=== PATIENT | male | born 1955 | race Caucasian/White ===

== ENCOUNTER 2022-06-21 19:41 | Emergency (ER) | payer MEDICARE ==
[2022-06-21 20:57] LABS: #Eosinphils 0.3 thou/uL (0.0-0.7); #Lymphocytes 2.2 thou/uL (1.20-3.40); #Monocytes 0.8 thou/uL (0.11-0.59); #Neutrophils 6.8 thou/uL (1.40-6.50); %Basophils 0.5 % (0.0-1.0); %Eosinophils 3.2 % (0.0-10.0); %Lymphocytes 21.4 % (21.0-51.0); %Monocytes 7.9 % (0.0-10.0); %Neutrophils 67.1 % (42.0-75.0); Hemoglobin 15.1 g/dL (14.0-18.0); Mean Corpuscular HGB CONC 33.3 g/dL (32.0-36.0); Mean Corpuscular Hemoglobin 28.9 pg (27.0-31.0); Mean Corpuscular Volume 86.7 fl (78.0-98.0); Mean Platelet Volume 8.1 fL (7.4-10.4); Platelet Count 210 10x3/uL (130-400); RBC Distribution Width 12.1 % (11.5-14.5); Red Blood Cell (RBC) Count 5.24 mill/uL (4.70-6.10); White Blood Cell (WBC) Count 10.1 10x3/uL (4.8-10.8)
[2022-06-21 21:08] LABS: ALT (SGPT) 12 U/L (8-55); AST (SGOT) 12 U/L (5-34); Albumin 4.2 g/dL (3.4-4.8); Alkaline Phosphatase 107 U/L (40-110); Anion Gap 12 mmol/L (10-20); BUN (Urea Nitrogen) 10 mg/dL (8.4-25.7); Bilirubin, Total 0.6 mg/dL (0.2-1.2); Calc. Creatinine Clearance 0 mL/min (70-130); Carbon Dioxide 23 mmol/L (23-31); Chloride 105 mmol/L (98-107); Estimated GFR 86; Globulin 2.5 g/dL (2.4-3.5); Glucose 95 mg/dL (80-115); Potassium 4.4 mmol/L (3.5-5.1); Protein, Total 6.7 g/dL (5.8-8.1); Sodium 136 mmol/L (136-145)
== END 2022-06-21 22:07 | disposition home or self-care (01) ==
LOC: ERS 19:41
DX: R00.2 Palpitations (principal); E78.00 Pure hypercholesterolemia, unspecified; Z87.891 Personal history of nicotine dependence
CPT/HCPCS: 36415; 71045; 80053; 84443; 84484; 85025; 85379; 93005

== ENCOUNTER 2022-07-21 21:44 | Inpatient (IN) | payer MEDICARE ==
[2022-07-21 22:19] LABS: #Basophils 0.1 thou/uL (0.0-0.2); #Eosinphils 0.5 thou/uL (0.0-0.7); #Lymphocytes 2.7 thou/uL (1.20-3.40); #Monocytes 0.8 thou/uL (0.11-0.59); %Basophils 0.9 % (0.0-1.0); %Eosinophils 5.7 % (0.0-10.0); %Lymphocytes 29.9 % (21.0-51.0); %Monocytes 8.3 % (0.0-10.0); %Neutrophils 55.2 % (42.0-75.0); Mean Corpuscular HGB CONC 32.7 g/dL (32.0-36.0); Mean Corpuscular Hemoglobin 28.9 pg (27.0-31.0); Mean Corpuscular Volume 88.2 fl (78.0-98.0); Mean Platelet Volume 7.9 fL (7.4-10.4); Platelet Count 246 10x3/uL (130-400); Red Blood Cell (RBC) Count 5.54 mill/uL (4.70-6.10); White Blood Cell (WBC) Count 9.1 10x3/uL (4.8-10.8)
[2022-07-21] MEDS ORDERED: Nitroglycerin 0.4 MG TAB 1 EACH ONE (22:31)
[2022-07-21 22:35] LABS: ALT (SGPT) 17 U/L (8-55); AST (SGOT) 14 U/L (5-34); Albumin 4.7 g/dL (3.4-4.8); Alkaline Phosphatase 104 U/L (40-110); Anion Gap 13 mmol/L (10-20); BUN (Urea Nitrogen) 17 mg/dL (8.4-25.7); Bilirubin, Total 0.3 mg/dL (0.2-1.2); Calc. Creatinine Clearance 0 mL/min (70-130); Calcium 9.4 mg/dL (7.8-10.44); Carbon Dioxide 24 mmol/L (23-31); Chloride 104 mmol/L (98-107); Estimated GFR 83; Globulin 3.1 g/dL (2.4-3.5); Glucose 97 mg/dL (80-115); Lipase 46 U/L (8-78); Potassium 3.6 mmol/L (3.5-5.1); Protein, Total 7.8 g/dL (5.8-8.1); Sodium 137 mmol/L (136-145)
[2022-07-22] MEDS ORDERED: Ondansetron PF 4 MG/2 ML Vial IVP PRN (01:15)
[2022-07-22] MEDS ORDERED: Ondansetron ODT 4 MG TAB SL PRN (01:15)
[2022-07-22 01:23] VITALS: BMI 23.0
[2022-07-22 02:04] LABS: Troponin I Less than 0.010 ng/mL (< 0.028)
[2022-07-22] MEDS ORDERED: Acetaminophen 650 MG Suppository PR PRN (04:21)
[2022-07-22] MEDS ORDERED: Acetaminophen 325 MG TAB PO PRN (04:21)
[2022-07-22] MEDS ORDERED: Nitroglycerin 0.4 MG TAB (25 Tab Bottle) SL PRN ×2 (04:21→09:30)
[2022-07-22] MEDS ORDERED: Nitroglycerin 100MG/250ML BOT 250 ML ONE (06:58)
[2022-07-22] MEDS ORDERED: Heparin 10,000 UNITS/ 10 ML VIAL ONE (06:58)
[2022-07-22] MEDS ORDERED: Adenosine 6 MG/2 ML VIAL ONE (06:58)
[2022-07-22] MEDS ORDERED: Verapamil 5 MG/2 ML VIAL ONE (06:58)
[2022-07-22] MEDS ORDERED: Lidocaine 1% (PF) 30 ML VIAL ONE (06:58)
[2022-07-22 07:06] LABS: Troponin I Less than 0.010 ng/mL (< 0.028)
[2022-07-22] MEDS ORDERED: Communication Order-Pharmacy FS PRN (07:30)
[2022-07-22] MEDS ORDERED: Midazolam HCl 2 mg/2 ml Vial ONE (08:21)
[2022-07-22] MEDS ORDERED: FENTANYL 50 MCG/ML 1 ML VIAL ONE (08:21)
[2022-07-22] MEDS ORDERED: Aspirin Chewable 81 MG TAB PO SCH (09:00)
[2022-07-22] MEDS ORDERED: Iopamidol 370 76% 100 ML VIAL ONE ×2 (09:20→13:06)
[2022-07-22] MEDS ORDERED: Acetaminophen/Codeine 30-300mg Tablet PO PRN ×2 (09:30)
[2022-07-22] MEDS ORDERED: Sodium Chloride 0.9% 200 ML IV PRN (09:30)
[2022-07-22] MEDS ORDERED: Diazepam 5 MG TAB PO PRN (17:08)
[2022-07-22] MEDS ORDERED: Communication Order-Pharmacy FS SCH (17:08)
[2022-07-22] MEDS: Atorvastatin Calcium 40 MG TAB PO SCH (21:09)
[2022-07-23 05:37] LABS: #Basophils 0.1 thou/uL (0.0-0.2); #Eosinphils 0.3 thou/uL (0.0-0.7); #Lymphocytes 2.1 thou/uL (1.20-3.40); #Monocytes 0.6 thou/uL (0.11-0.59); #Neutrophils 4.3 thou/uL (1.40-6.50); %Eosinophils 4.6 % (0.0-10.0); %Lymphocytes 28.5 % (21.0-51.0); %Monocytes 8.4 % (0.0-10.0); %Neutrophils 57.5 % (42.0-75.0); Hemoglobin 13.6 g/dL (14.0-18.0); Mean Corpuscular HGB CONC 33.5 g/dL (32.0-36.0); Mean Corpuscular Hemoglobin 29.7 pg (27.0-31.0); Mean Corpuscular Volume 88.5 fl (78.0-98.0); Mean Platelet Volume 8.3 fL (7.4-10.4); Platelet Count 206 10x3/uL (130-400); RBC Distribution Width 11.9 % (11.5-14.5); Red Blood Cell (RBC) Count 4.57 mill/uL (4.70-6.10); White Blood Cell (WBC) Count 7.4 10x3/uL (4.8-10.8)
[2022-07-23 05:58] LABS: Anion Gap 10 mmol/L (10-20); BUN (Urea Nitrogen) 11 mg/dL (8.4-25.7); Calc. Creatinine Clearance 87 mL/min (70-130); Calcium 8.5 mg/dL (7.8-10.44); Carbon Dioxide 20 mmol/L (23-31); Chloride 110 mmol/L (98-107); Estimated GFR 97; Glucose 90 mg/dL (80-115); Potassium 3.9 mmol/L (3.5-5.1); Sodium 136 mmol/L (136-145)
[2022-07-23] MEDS: Niacin 500 MG TAB PO SCH (09:33)
[2022-07-23] MEDS: Aspirin Chewable 81 MG TAB PO SCH (09:33)
[2022-07-23] MEDS: Atorvastatin Calcium 40 MG TAB PO SCH (20:40)
[2022-07-24] MEDS ORDERED: CEFAZOLIN 2 GM in Sodium Chloride 0.9% 100 ML IVPB SCH (07:30)
[2022-07-24] MEDS: Aspirin Chewable 81 MG TAB PO SCH (07:39)
[2022-07-24] MEDS: Niacin 500 MG TAB PO SCH (07:39)
[2022-07-24] MEDS ORDERED: Bupivacaine HCl 0.5%/Epinephrine 1:200,000/PF 30 ml Vial ONE (08:03)
[2022-07-24] MEDS ORDERED: Albumin 5% 500 ML ONE (08:03)
[2022-07-24] MEDS ORDERED: Dexamethasone 4 mg/ml Vial ONE (08:03)
[2022-07-24] MEDS ORDERED: Heparin 10,000 UNITS/1 ML VIAL 30,000 UNITS in Sodium Chloride 0.9% 1,000 ML FS SCH (08:30)
[2022-07-24] MEDS ORDERED: Lidocaine 1% PF 5 ML VIAL ONE (08:38)
[2022-07-24] MEDS ORDERED: PHENYLEPHRINE-NS 100 MCG/ML 10 ML SYRINGE ONE (09:12)
[2022-07-24] MEDS ORDERED: CEFAZOLIN 2 GM VIAL ONE (09:46)
[2022-07-24] MEDS ORDERED: Sodium Chloride 0.9% 100 ML ONE (09:46)
[2022-07-24] MEDS ORDERED: Midazolam HCl 5 mg/5 ml Vial ONE (09:49)
[2022-07-24] MEDS ORDERED: Fentanyl 250 MCG/5 ML VIAL ONE ×2 (09:49)
[2022-07-24] MEDS ORDERED: Cardioplegic Soln 1,000 ML BAG ONE (09:52)
[2022-07-24] MEDS ORDERED: Ondansetron PF 4 MG/2 ML Vial ONE (09:52)
[2022-07-24] MEDS ORDERED: Lidocaine 2% PF 100 mg/5 ml Syringe ONE (09:52)
[2022-07-24] MEDS ORDERED: Heparin 30,000 units/30 ml VIAL ONE (09:52)
[2022-07-24] MEDS ORDERED: Mannitol 12.5 GM/50 ML ONE (09:52)
[2022-07-24] MEDS ORDERED: PROPOFOL 200 MG/20 ML VIAL ONE (09:52)
[2022-07-24] MEDS ORDERED: Calcium Chloride 1 GM/10 ML Abboject SYRINGE ONE (09:52)
[2022-07-24] MEDS ORDERED: Esmolol 100 MG/10 ML VIAL ONE (09:52)
[2022-07-24] MEDS ORDERED: Phenylephrine 10 MG/ML VIAL ONE (09:52)
[2022-07-24] MEDS ORDERED: Protamine Sulfate 250 MG/25 ML VIAL ONE (09:52)
[2022-07-24] MEDS ORDERED: Sodium Bicarb 50 MEQ/50 ML VIAL ONE (09:52)
[2022-07-24] MEDS ORDERED: Potassium Chloride 60 MEQ/30 ML VIAL ONE (09:52)
[2022-07-24] MEDS ORDERED: Papaverine 60 MG/2 ML VIAL ONE (09:52)
[2022-07-24] MEDS ORDERED: Rocuronium Bromide 10 MG/ML (10ML VIAL) ONE (09:52)
[2022-07-24] MEDS ORDERED: Vancomycin 1 GM VIAL ONE (09:52)
[2022-07-24] MEDS ORDERED: Magnesium 5 GM/10 ML VIAL ONE (09:52)
[2022-07-24] MEDS ORDERED: Aminocaproic Acid 5 GM/20 ML VIAL ONE (09:52)
[2022-07-24] MEDS ORDERED: Thrombin 5000 UNITS/5 ML VIAL ONE (09:52)
[2022-07-24] MEDS ORDERED: Heparin 5,000 UNITS/ML VIAL ONE (09:52)
[2022-07-24] MEDS ORDERED: Rocuronium Bromide 50 MG/5 ML VIAL ONE (11:26)
[2022-07-24] MEDS ORDERED: NOREPINEPHRINE 8 MG/250 ML-D5W 250 ML IVPB PRN (11:44)
[2022-07-24] MEDS ORDERED: niCARdipine 25 MG in Sodium Chloride 0.9% 250 ML 250 ML IVPB PRN (11:44)
[2022-07-24] MEDS ORDERED: Acetaminophen 325 MG TAB PO PRN (11:44)
[2022-07-24] MEDS ORDERED: Bisacodyl 5 MG TAB PO PRN (11:44)
[2022-07-24] MEDS ORDERED: traMADol HCl 50 MG TAB PO PRN (11:44)
[2022-07-24] MEDS ORDERED: hydrALAZINE 20 MG/ML VIAL SLOW IVP PRN (11:44)
[2022-07-24] MEDS ORDERED: FENTANYL 50 MCG/ML 1 ML VIAL SLOW IVP PRN (11:44)
[2022-07-24] MEDS ORDERED: Morphine 2 MG/ML VIAL SLOW IVP PRN (11:44)
[2022-07-24] MEDS ORDERED: Ipratropium/Albuterol 3 ML NEB NEB PRN (11:44)
[2022-07-24] MEDS ORDERED: Mag-Al 1200 mg/1200 mg/30 ML UDCUP PO PRN (11:44)
[2022-07-24] MEDS ORDERED: Guaifenesin DM 100-10/5 ML UDCUP PO PRN (11:44)
[2022-07-24] MEDS ORDERED: Hetastarch 6% 500 ML 500 ML IVPB PRN (11:44)
[2022-07-24] MEDS ORDERED: Bisacodyl 10 MG SUPP PR PRN (11:44)
[2022-07-24] MEDS ORDERED: Dextrose 5% in Water 1,000 ML IV PRN (12:30)
[2022-07-24] MEDS ORDERED: Dextrose 50% Abboject 50 ML SYRINGE SLOW IVP PRN (12:30)
[2022-07-24] MEDS ORDERED: HUMULIN R 100 UNITS in Sodium Chloride 0.9% 100 ML IVPB SCH (12:30)
[2022-07-24 13:14] LABS: Actual Bicarbonate (HCO3a) 22.9 mEq/L (22-28); Base Excess (BEa) -4.1 mEq/L (-2.0 to +3.0); CO2 Tension 49.9 mmHg (35.0-45.0); Calcium, Ionized (arterial) 1.11 mmol/L (1.12-1.30); Carboxyhemoglobin (COHb) 0.3 gm% (0.0-3.0); Hemoglobin (Hb) 12.5 g/dL (14.0-18.0); Potassium - ABG Lab 3.69 mmol/L (3.70-5.30); pH, Arterial 7.28 (7.35-7.45)
[2022-07-24 13:15] LABS: ALV-art Gradient 210.425 mmHg (0-20); Puncture Site Arterial Line
[2022-07-24] MEDS: Potassium Chloride 20 MEQ in Lactated Ringer's 1,000 ML IV SCH (13:15)
[2022-07-24] MEDS: Insulin Regular 300 UNITS/3 ML VIAL SC PRN ×2 (13:17→15:06)
[2022-07-24 13:23] LABS: Potassium 1.7 mmol/L (3.5-5.1)
[2022-07-24] MEDS: Potassium Chloride 20 MEQ/100 ML PREMIX BAG IVPB PRN ×2 (13:24→17:06)
[2022-07-24] MEDS: Ketorolac Tromethamine 30 MG/ML VIAL IVP SCH ×3 (13:36→23:45)
[2022-07-24 13:49] LABS: INR-International Normal Ratio 1.2; PTT 31.4 sec (22.9-36.1); Prothrombin Time 15.4 sec (12.0-14.7)
[2022-07-24 13:56] LABS: Anion Gap 11 mmol/L (10-20); BUN (Urea Nitrogen) 9 mg/dL (8.4-25.7); Calc. Creatinine Clearance 91 mL/min (70-130); Carbon Dioxide 22 mmol/L (23-31); Chloride 112 mmol/L (98-107); Estimated GFR 98; Glucose 165 mg/dL (80-115); Hemoglobin 11.9 g/dL (14.0-18.0); Mean Corpuscular HGB CONC 32.5 g/dL (32.0-36.0); Mean Corpuscular Hemoglobin 29.3 pg (27.0-31.0); Mean Platelet Volume 7.7 fL (7.4-10.4); Platelet Count 193 10x3/uL (130-400); Potassium 3.8 mmol/L (3.5-5.1); Red Blood Cell (RBC) Count 4.05 mill/uL (4.70-6.10); Sodium 141 mmol/L (136-145); White Blood Cell (WBC) Count 21.7 10x3/uL (4.8-10.8)
[2022-07-24 14:25] LABS: Band 22 % (5-11); Lymphocytes 7 % (21-51); MDiff Complete? YES; Monocytes 1 % (0-10); Neutrophil 69 % (42-75); Platelet Morphology Comment Appears Adequate; RBC Morphology Normal
[2022-07-24] MEDS: Ondansetron PF 4 MG/2 ML Vial IVP PRN ×2 (14:26→20:53)
[2022-07-24 16:16] LABS: Potassium 3.5 mmol/L (3.5-5.1)
[2022-07-24 16:25] LABS: Actual Bicarbonate (HCO3a) 18.7 mEq/L (22-28); Base Excess (BEa) -6.5 mEq/L (-2.0 to +3.0); CO2 Tension 36.3 mmHg (35.0-45.0); Calcium, Ionized (arterial) 1.09 mmol/L (1.12-1.30); Carboxyhemoglobin (COHb) 0.2 gm% (0.0-3.0); Hemoglobin (Hb) 11.7 g/dL (14.0-18.0); O2 Tension (PaO2), arterial 127.8 mmHg (> 80.0); Potassium - ABG Lab 3.69 mmol/L (3.70-5.30); pH, Arterial 7.33 (7.35-7.45)
[2022-07-24 16:32] LABS: ALV-art Gradient 112.025 mmHg (0-20); Puncture Site Arterial Line
[2022-07-24] MEDS: FENTANYL 50 MCG/ML 1 ML VIAL SLOW IVP PRN ×3 (16:34→23:55)
[2022-07-24] MEDS: CEFAZOLIN 2 GM in Sodium Chloride 0.9% 100 ML IVPB SCH (17:51)
[2022-07-24 18:03] LABS: Hemoglobin 11.7 g/dL (14.0-18.0)
[2022-07-24] MEDS: Famotidine/PF 20 mg/2ml Vial SLOW IVP SCH ×2 (20:53→20:56)
[2022-07-24] MEDS: traMADol HCl 50 MG TAB PO PRN (20:54)
[2022-07-24] MEDS ORDERED: Atorvastatin Calcium 20 MG TAB PO SCH (21:00)
[2022-07-25] MEDS ORDERED: Amiodarone 150 MG, Admixture Fee 1 EACH in Dextrose 5% in Water 100 ML IVPB SCH (00:30)
[2022-07-25] MEDS: Amiodarone 450 MG, Admixture Fee 1 EACH in Dextrose 5% in Water 250 ML IVPB SCH ×2 (00:41→09:04)
[2022-07-25] MEDS: CEFAZOLIN 2 GM in Sodium Chloride 0.9% 100 ML IVPB SCH ×2 (02:42→08:40)
[2022-07-25] MEDS: Ondansetron PF 4 MG/2 ML Vial IVP PRN ×3 (03:17→16:32)
[2022-07-25 04:59] LABS: #Lymphocytes 0.8 thou/uL (1.20-3.40); #Monocytes 1.6 thou/uL (0.11-0.59); #Neutrophils 19.1 thou/uL (1.40-6.50); %Lymphocytes 3.6 % (21.0-51.0); %Monocytes 7.5 % (0.0-10.0); %Neutrophils 88.8 % (42.0-75.0); Mean Corpuscular HGB CONC 32.6 g/dL (32.0-36.0); Mean Platelet Volume 7.9 fL (7.4-10.4); Platelet Count 178 10x3/uL (130-400); RBC Distribution Width 11.9 % (11.5-14.5); Red Blood Cell (RBC) Count 3.81 mill/uL (4.70-6.10); White Blood Cell (WBC) Count 21.5 10x3/uL (4.8-10.8)
[2022-07-25 05:18] LABS: Anion Gap 12 mmol/L (10-20); BUN (Urea Nitrogen) 12 mg/dL (8.4-25.7); Calc. Creatinine Clearance 86 mL/min (70-130); Calcium 8.5 mg/dL (7.8-10.44); Carbon Dioxide 21 mmol/L (23-31); Chloride 110 mmol/L (98-107); Estimated GFR 96; Glucose 124 mg/dL (80-115); Potassium 3.9 mmol/L (3.5-5.1); Sodium 139 mmol/L (136-145)
[2022-07-25] MEDS: Ketorolac Tromethamine 30 MG/ML VIAL IVP SCH ×4 (05:46→23:44)
[2022-07-25] MEDS: Potassium Chloride 20 MEQ/100 ML PREMIX BAG IVPB PRN (05:48)
[2022-07-25] MEDS ORDERED: Atorvastatin Calcium 20 MG TAB PO SCH (07:20)
[2022-07-25 07:37] LABS: Hemoglobin A1c 5.4 % (4.0-6.0)
[2022-07-25] MEDS: Magnesium 2 GM/50 ML(in water) 2 GM in Premix Bag 1 BAG IVPB SCH (08:39)
[2022-07-25] MEDS: Metoclopramide HCl 10 MG/2 ML VIAL IVP SCH ×3 (08:39→19:48)
[2022-07-25] MEDS: Aspirin 325 MG TAB PO SCH (08:40)
[2022-07-25] MEDS ORDERED: FLU VACC QS2022-23(65YR UP)/PF 240 MCG/0.7 ML SYRINGE IM ONE (09:00)
[2022-07-25] MEDS: FENTANYL 50 MCG/ML 1 ML VIAL SLOW IVP PRN (09:03)
[2022-07-25] MEDS: Potassium Chloride 20 MEQ in Lactated Ringer's 1,000 ML IV SCH (09:44)
[2022-07-25] MEDS ORDERED: Insulin Glargine 30 UNITS/0.3 ML VIAL SC PRN (12:17)
[2022-07-25] MEDS: traMADol HCl 50 MG TAB PO PRN ×2 (13:33→19:46)
[2022-07-25] MEDS: Atorvastatin Calcium 40 MG TAB PO SCH (19:48)
[2022-07-25] MEDS: Insulin Regular 300 UNITS/3 ML VIAL SC PRN (21:42)
[2022-07-26] MEDS: Amiodarone 450 MG, Admixture Fee 1 EACH in Dextrose 5% in Water 250 ML IVPB SCH (01:27)
[2022-07-26] MEDS: Metoclopramide HCl 10 MG/2 ML VIAL IVP SCH ×4 (02:00→21:18)
[2022-07-26] MEDS: Ondansetron PF 4 MG/2 ML Vial IVP PRN ×3 (04:03→17:12)
[2022-07-26] MEDS: traMADol HCl 50 MG TAB PO PRN ×2 (04:03→13:24)
[2022-07-26] MEDS: Potassium Chloride 20 MEQ in Lactated Ringer's 1,000 ML IV SCH (04:04)
[2022-07-26 05:18] LABS: #Lymphocytes 2.2 thou/uL (1.20-3.40); #Neutrophils 19.2 thou/uL (1.40-6.50); %Basophils 0.1 % (0.0-1.0); %Eosinophils 0.1 % (0.0-10.0); %Lymphocytes 9.5 % (21.0-51.0); %Monocytes 8.7 % (0.0-10.0); %Neutrophils 81.7 % (42.0-75.0); Hemoglobin 11.6 g/dL (14.0-18.0); Mean Corpuscular HGB CONC 33.1 g/dL (32.0-36.0); Mean Corpuscular Hemoglobin 29.8 pg (27.0-31.0); Mean Corpuscular Volume 90.1 fl (78.0-98.0); Mean Platelet Volume 8.8 fL (7.4-10.4); Platelet Count 186 10x3/uL (130-400); RBC Distribution Width 12.3 % (11.5-14.5); White Blood Cell (WBC) Count 23.5 10x3/uL (4.8-10.8)
[2022-07-26 05:34] LABS: Anion Gap 11 mmol/L (10-20); BUN (Urea Nitrogen) 18 mg/dL (8.4-25.7); Calc. Creatinine Clearance 97 mL/min (70-130); Calcium 7.8 mg/dL (7.8-10.44); Carbon Dioxide 21 mmol/L (23-31); Chloride 105 mmol/L (98-107); Estimated GFR 97; Glucose 123 mg/dL (80-115); Potassium 4.6 mmol/L (3.5-5.1); Sodium 132 mmol/L (136-145)
[2022-07-26] MEDS: Ketorolac Tromethamine 30 MG/ML VIAL IVP SCH ×3 (06:32→21:17)
[2022-07-26] MEDS: Insulin Regular 300 UNITS/3 ML VIAL SC PRN (06:37)
[2022-07-26] MEDS: Aspirin 325 MG TAB PO SCH (07:52)
[2022-07-26] MEDS: Magnesium 2 GM/50 ML(in water) 2 GM in Premix Bag 1 BAG IVPB SCH (07:52)
[2022-07-26] MEDS ORDERED: Potassium Chloride 20 MEQ TAB PO SCH ×2 (08:00→17:00)
[2022-07-26] MEDS: Metoprolol Tartrate 25 MG TAB PO SCH ×3 (08:05→21:18)
[2022-07-26] MEDS ORDERED: Furosemide 40 MG TAB PO SCH ×2 (09:00→12:15)
[2022-07-26] MEDS: Amiodarone 200 MG TAB PO SCH ×3 (10:20→21:18)
[2022-07-26] MEDS ORDERED: Nitroglycerin 0.4 MG TAB (25 Tab Bottle) SL PRN (19:27)
[2022-07-26] MEDS ORDERED: Zolpidem Tartrate 5 MG TAB PO PRN (19:27)
[2022-07-26] MEDS ORDERED: Mineral Oil ENEMA PR PRN (19:27)
[2022-07-26] MEDS ORDERED: diphenhydrAMINE 25 MG CAP PO PRN (19:27)
[2022-07-26] MEDS ORDERED: Guaifenesin DM 100-10/5 ML UDCUP PO PRN (19:27)
[2022-07-26] MEDS ORDERED: Milk Of Magnesia 30 ML UDCUP PO PRN (19:27)
[2022-07-26] MEDS: Atorvastatin Calcium 40 MG TAB PO SCH (21:19)
[2022-07-27] MEDS: Ketorolac Tromethamine 30 MG/ML VIAL IVP SCH ×2 (00:21→06:20)
[2022-07-27] MEDS: Metoclopramide HCl 10 MG/2 ML VIAL IVP SCH ×2 (02:31→09:14)
[2022-07-27] MEDS ORDERED: Furosemide 40 MG TAB PO SCH (07:30)
[2022-07-27] MEDS: Aspirin 325 MG TAB PO SCH (09:11)
[2022-07-27] MEDS: Metoprolol Tartrate 25 MG TAB PO SCH ×2 (09:11→20:39)
[2022-07-27] MEDS: Amiodarone 200 MG TAB PO SCH ×3 (09:12→20:39)
[2022-07-27] MEDS: Potassium Chloride 20 MEQ TAB PO SCH (09:13)
[2022-07-27] MEDS: Furosemide 40 MG TAB PO SCH (09:13)
[2022-07-27] MEDS ORDERED: HYDROcodone/Acetaminophen 5/325 mg Tablet PO PRN ×2 (10:13)
[2022-07-27 11:06] LABS: Anion Gap 13 mmol/L (10-20); BUN (Urea Nitrogen) 16 mg/dL (8.4-25.7); Calc. Creatinine Clearance 100 mL/min (70-130); Calcium 8.4 mg/dL (7.8-10.44); Carbon Dioxide 23 mmol/L (23-31); Chloride 94 mmol/L (98-107); Estimated GFR 97; Glucose 116 mg/dL (80-115); Potassium 4.3 mmol/L (3.5-5.1); Sodium 126 mmol/L (136-145)
[2022-07-27] MEDS ORDERED: Furosemide 40 MG/4 ML VIAL SLOW IVP SCH (13:00)
[2022-07-27 14:14] LABS: Anion Gap 11 mmol/L (10-20); BUN (Urea Nitrogen) 16 mg/dL (8.4-25.7); Calc. Creatinine Clearance 107 mL/min (70-130); Calcium 7.9 mg/dL (7.8-10.44); Carbon Dioxide 24 mmol/L (23-31); Chloride 94 mmol/L (98-107); Estimated GFR 99; Glucose 119 mg/dL (80-115); Sodium 125 mmol/L (136-145)
[2022-07-27] MEDS: Atorvastatin Calcium 40 MG TAB PO SCH (20:39)
[2022-07-28 05:29] LABS: Anion Gap 11 mmol/L (10-20); BUN (Urea Nitrogen) 14 mg/dL (8.4-25.7); Calc. Creatinine Clearance 101 mL/min (70-130); Calcium 8.1 mg/dL (7.8-10.44); Carbon Dioxide 26 mmol/L (23-31); Chloride 95 mmol/L (98-107); Estimated GFR 97; Glucose 108 mg/dL (80-115); Potassium 3.5 mmol/L (3.5-5.1); Sodium 128 mmol/L (136-145)
[2022-07-28] MEDS: Metoprolol Tartrate 25 MG TAB PO SCH (09:12)
[2022-07-28] MEDS: Amiodarone 200 MG TAB PO SCH (09:12)
[2022-07-28] MEDS: Aspirin 325 MG TAB PO SCH (09:14)
[2022-07-28] MEDS: Furosemide 40 MG TAB PO SCH (09:14)
[2022-07-28] MEDS: Potassium Chloride 20 MEQ TAB PO SCH (09:14)
[2022-07-28 12:17] VITALS: TEMP 97.7
[2022-07-28 12:34] VITALS: BP 122/59
[2022-07-29 13:35] LABS: Actual Bicarbonate (HCO3a) 19.1 mEq/L (22-28); Analyzer IN Cardio OR; Base Excess (BEa) -4.5 mEq/L (-2.0 to +3.0); Calcium, Ionized (arterial) 1.11 mmol/L (1.12-1.30); Carboxyhemoglobin (COHb) 0.6 gm% (0.0-3.0); O2 Tension (PaO2), arterial 377.1 mmHg (> 80.0); Potassium - ABG Lab 3.57 mmol/L (3.70-5.30); pH, Arterial 7.41 (7.35-7.45)
[2022-07-29 13:44] LABS: Actual Bicarbonate (HCO3a) 24.1 mEq/L (22-28); Analyzer IN Cardio OR; Base Excess (BEa) -0.6 mEq/L (-2.0 to +3.0); CO2 Tension 39.6 mmHg (35.0-45.0); Calcium, Ionized (arterial) 0.97 mmol/L (1.12-1.30); Carboxyhemoglobin (COHb) 0.3 gm% (0.0-3.0); Hemoglobin (Hb) 9.8 g/dL (14.0-18.0); O2 Tension (PaO2), arterial 294.8 mmHg (> 80.0); Potassium - ABG Lab 4.82 mmol/L (3.70-5.30)
[2022-07-29 13:46] LABS: Actual Bicarbonate (HCO3a) 20.4 mEq/L (22-28); Analyzer IN Cardio OR; Base Excess (BEa) -4.7 mEq/L (-2.0 to +3.0); CO2 Tension 37.3 mmHg (35.0-45.0); Calcium, Ionized (arterial) 1.01 mmol/L (1.12-1.30); Carboxyhemoglobin (COHb) 0.3 gm% (0.0-3.0); Hemoglobin (Hb) 9.9 g/dL (14.0-18.0); O2 Tension (PaO2), arterial 231.4 mmHg (> 80.0); pH, Arterial 7.36 (7.35-7.45)
[2022-07-29 13:49] LABS: Actual Bicarbonate (HCO3a) 24.8 mEq/L (22-28); Analyzer IN Cardio OR; Base Excess (BEa) -0.6 mEq/L (-2.0 to +3.0); Calcium, Ionized (arterial) 1.13 mmol/L (1.12-1.30); Carboxyhemoglobin (COHb) 0.3 gm% (0.0-3.0); Hemoglobin (Hb) 9.9 g/dL (14.0-18.0); O2 Tension (PaO2), arterial 381.4 mmHg (> 80.0); Potassium - ABG Lab 4.14 mmol/L (3.70-5.30); pH, Arterial 7.37 (7.35-7.45)
[2022-07-29 13:53] LABS: Puncture Site Arterial Line
[2022-07-29 13:54] LABS: Puncture Site Arterial Line
[2022-07-29 13:55] LABS: Puncture Site Arterial Line
[2022-07-29 13:55] LABS: Puncture Site Arterial Line
== END 2022-07-28 12:40 | disposition home or self-care (01) | DRG 234 ==
LOC: ERS 21:44 → 2NO 23:39 → OBSVTOIN 07-22 10:52 → CCU 07-24 08:43 → 2NO 07-26 19:48
PROVIDERS: ADMIT Internal Medicine; ATTEND Internal Medicine
PROC: 4A023N7 Measurement of Cardiac Sampling and Pressure, Left Heart, Percutaneous Approach (ICD-10-PCS; 2022-07-21)
PROC: B2111ZZ Fluoroscopy of Multiple Coronary Arteries using Low Osmolar Contrast (ICD-10-PCS; 2022-07-21)
PROC: B2151ZZ Fluoroscopy of Left Heart using Low Osmolar Contrast (ICD-10-PCS; 2022-07-21)
PROC: 02100Z9 Bypass Coronary Artery, One Artery from Left Internal Mammary, Open Approach (ICD-10-PCS; principal; 2022-07-24)
PROC: 021109W Bypass Coronary Artery, Two Arteries from Aorta with Autologous Venous Tissue, Open Approach (ICD-10-PCS; 2022-07-24)
PROC: 06BQ4ZZ Excision of Left Saphenous Vein, Percutaneous Endoscopic Approach (ICD-10-PCS; 2022-07-24)
PROC: 5A1221Z Performance of Cardiac Output, Continuous (ICD-10-PCS; 2022-07-24)
PROC: 02L73CK Occlusion of Left Atrial Appendage with Extraluminal Device, Percutaneous Approach (ICD-10-PCS; 2022-07-24)
DX: I25.110 Atherosclerotic heart disease of native coronary artery with unstable angina pectoris (principal); E22.2 Syndrome of inappropriate secretion of antidiuretic hormone; I47.20 Ventricular tachycardia, unspecified; I10 Essential (primary) hypertension; R09.89 Other specified symptoms and signs involving the circulatory and respiratory systems; E78.2 Mixed hyperlipidemia; I95.1 Orthostatic hypotension; I48.91 Unspecified atrial fibrillation; R11.0 Nausea; Z79.82 Long term (current) use of aspirin; Z79.899 Other long term (current) drug therapy; Z90.49 Acquired absence of other specified parts of digestive tract; Z87.891 Personal history of nicotine dependence; Z78.1 Physical restraint status; Z82.49 Family history of ischemic heart disease and other diseases of the circulatory system; Z80.9 Family history of malignant neoplasm, unspecified; Z82.3 Family history of stroke
CPT/HCPCS: 36415; 36416; 36430; 70498; 71045; 80048; 80053; 82805; 83036; 83690; 83930; 83935; 84484; 85025; 85610; 85730; 86850; 86900; 86901; 93005; 93010; 93458; 93798; 94002; 94760; 96372; 99152; 99153; C1751; C1769; C1776; C1894; G0378; J0153; J0282; J1100; J1642; J1644; J1650; J1815; J1885; J1940; J2001; J2150; J2250; J2272; J2370; J2405; J2440; J2704; J2720; J2765; J3010; J3370; J3475; J3480; J3490; J7070; J7120; P9045; Q9967; S0017; S0028

== ENCOUNTER 2022-08-01 01:55 | Inpatient (IN) | payer MEDICARE ==
[2022-08-01 02:25] LABS: Hemoglobin 6.1 g/dL (14.0-18.0); Mean Corpuscular HGB CONC 33.9 g/dL (32.0-36.0); Mean Corpuscular Hemoglobin 30.2 pg (27.0-31.0); Mean Corpuscular Volume 89.2 fl (78.0-98.0); Mean Platelet Volume 6.6 fL (7.4-10.4); Platelet Count 368 10x3/uL (130-400); RBC Distribution Width 11.9 % (11.5-14.5); Red Blood Cell (RBC) Count 2.02 mill/uL (4.70-6.10); White Blood Cell (WBC) Count 25.1 10x3/uL (4.8-10.8)
[2022-08-01 02:33] LABS: INR-International Normal Ratio 1.3; PTT 27.6 sec (22.9-36.1); Prothrombin Time 16.5 sec (12.0-14.7)
[2022-08-01 02:39] LABS: Band 6 % (5-11); Eosinophils 1 % (0-10); Lymphocytes 3 % (21-51); MDiff Complete? YES; Metamyelocyte 1 % (0-0); Monocytes 7 % (0-10); Myelocyte 1 % (0-0); Neutrophil 81 % (42-75); Toxic Granulation SLIGHT
[2022-08-01 02:45] LABS: ALT (SGPT) 28 U/L (8-55); AST (SGOT) 18 U/L (5-34); Albumin 2.3 g/dL (3.4-4.8); Alkaline Phosphatase 82 U/L (40-110); Anion Gap 11 mmol/L (10-20); BUN (Urea Nitrogen) 23 mg/dL (8.4-25.7); Bilirubin, Total 0.3 mg/dL (0.2-1.2); Calc. Creatinine Clearance 0 mL/min (70-130); Carbon Dioxide 21 mmol/L (23-31); Chloride 105 mmol/L (98-107); Estimated GFR 97; Globulin 1.7 g/dL (2.4-3.5); Glucose 149 mg/dL (80-115); Magnesium 1.6 mg/dL (1.6-2.6); Potassium 4.3 mmol/L (3.5-5.1); Sodium 133 mmol/L (136-145)
[2022-08-01 02:55] LABS: Calcium 6.8 mg/dL (7.8-10.44)
[2022-08-01] MEDS ORDERED: Acetaminophen 325 MG TAB PO PRN (03:19)
[2022-08-01] MEDS ORDERED: Ondansetron PF 4 MG/2 ML Vial IVP PRN (03:19)
[2022-08-01] MEDS ORDERED: Senokot S 8.6-50 MG TAB PO PRN (03:19)
[2022-08-01] MEDS ORDERED: Calcium Carbonate 500 MG ChewTAB PO PRN (03:19)
[2022-08-01] MEDS ORDERED: Ondansetron ODT 4 MG TAB PO PRN (03:19)
[2022-08-01] MEDS ORDERED: Pantoprazole 40 MG VIAL ONE (03:23)
[2022-08-01] MEDS ORDERED: Calcium Chloride 1 GM/10 ML Abboject SYRINGE ONE (03:23)
[2022-08-01 03:24] LABS: CKMB 0.5 ng/mL (0-6.6)
[2022-08-01] MEDS ORDERED: Calcium Gluc 4.6 MEQ/10 ML (100 MG/ML) ONE (03:25)
[2022-08-01] MEDS ORDERED: CALCIUM GLUC 1 GM/NS 50 ML BAG ONE ×2 (03:25→03:27)
[2022-08-01] MEDS ORDERED: Pantoprazole 40 MG VIAL IVP SCH ×2 (03:30→09:00)
[2022-08-01 04:41] LABS: Troponin I 0.525 ng/mL (< 0.028)
[2022-08-01] MEDS ORDERED: Cefepime 1 GM in Sodium Chloride 0.9% 100 ML IVPB SCH (05:00)
[2022-08-01] MEDS ORDERED: Magnesium 2 GM/50 ML(in water) 2 GM in Premix Bag 1 BAG IVPB SCH (05:15)
[2022-08-01] MEDS ORDERED: Electrolyte Replacement Protocol 1 EACH FS PRN (06:06)
[2022-08-01 06:22] VITALS: BMI 25.1
[2022-08-01 08:46] LABS: Critical Call Chem Troponin I RESULT DECREASING; Troponin I 0.435 ng/mL (< 0.028)
[2022-08-01] MEDS ORDERED: Metoprolol Tartrate 25 MG TAB PO SCH ×2 (09:00)
[2022-08-01] MEDS: Amiodarone 200 MG TAB PO SCH ×3 (09:58→20:25)
[2022-08-01] MEDS: Potassium Chloride 20 MEQ TAB PO SCH (09:58)
[2022-08-01] MEDS: Dextrose 5 % And 0.9 % NaCl 1,000 ML IV SCH ×3 (12:30→22:30)
[2022-08-01 13:06] LABS: Hemoglobin 8.4 g/dL (14.0-18.0)
[2022-08-01] MEDS ORDERED: Iopamidol-370 76% 500 ML MDV (1 ML CHARGE) ONE (13:28)
[2022-08-01] MEDS: Cefepime 2 GM in Sodium Chloride 0.9% 100 ML IVPB SCH (17:40)
[2022-08-01 20:01] LABS: Hemoglobin 8.7 g/dL (14.0-18.0)
[2022-08-01] MEDS: Atorvastatin Calcium 40 MG TAB PO SCH (20:25)
[2022-08-01] MEDS: Pantoprazole 40 MG VIAL IVP SCH (20:26)
[2022-08-02 04:08] LABS: #Eosinphils 0.6 thou/uL (0.0-0.7); #Lymphocytes 2.4 thou/uL (1.20-3.40); #Monocytes 1.7 thou/uL (0.11-0.59); #Neutrophils 13.7 thou/uL (1.40-6.50); %Basophils 0.2 % (0.0-1.0); %Eosinophils 3.4 % (0.0-10.0); %Lymphocytes 12.9 % (21.0-51.0); %Monocytes 9.1 % (0.0-10.0); %Neutrophils 74.3 % (42.0-75.0); Mean Corpuscular Hemoglobin 31.1 pg (27.0-31.0); Mean Corpuscular Volume 88.7 fl (78.0-98.0); Mean Platelet Volume 6.2 fL (7.4-10.4); Platelet Count 339 10x3/uL (130-400); RBC Distribution Width 12.4 % (11.5-14.5); Red Blood Cell (RBC) Count 2.56 mill/uL (4.70-6.10); White Blood Cell (WBC) Count 18.4 10x3/uL (4.8-10.8)
[2022-08-02 04:28] LABS: ALT (SGPT) 22 U/L (8-55); AST (SGOT) 15 U/L (5-34); Albumin 2.5 g/dL (3.4-4.8); Alkaline Phosphatase 91 U/L (40-110); Anion Gap 9 mmol/L (10-20); BUN (Urea Nitrogen) 11 mg/dL (8.4-25.7); Bilirubin, Total 0.6 mg/dL (0.2-1.2); Calc. Creatinine Clearance 108 mL/min (70-130); Calcium 7.4 mg/dL (7.8-10.44); Carbon Dioxide 22 mmol/L (23-31); Chloride 106 mmol/L (98-107); Estimated GFR 99; Globulin 1.8 g/dL (2.4-3.5); Glucose 116 mg/dL (80-115); Magnesium 1.9 mg/dL (1.6-2.6); Potassium 3.9 mmol/L (3.5-5.1); Protein, Total 4.3 g/dL (5.8-8.1); Sodium 133 mmol/L (136-145)
[2022-08-02] MEDS: Cefepime 2 GM in Sodium Chloride 0.9% 100 ML IVPB SCH ×2 (05:13→15:34)
[2022-08-02] MEDS ORDERED: Magnesium 2 GM/50 ML(in water) 2 GM in Premix Bag 1 BAG IVPB SCH (08:00)
[2022-08-02] MEDS ORDERED: Ketamine 50 MG/ML (10ML VIAL) ONE (10:29)
[2022-08-02] MEDS ORDERED: Midazolam HCl 2 mg/2 ml Vial ONE (10:29)
[2022-08-02] MEDS ORDERED: ePHEDrine Sulfate 50 MG/10 ML VIAL ONE (10:37)
[2022-08-02] MEDS ORDERED: PROPOFOL 200 MG/20 ML VIAL ONE (10:37)
[2022-08-02] MEDS ORDERED: EPINEPHrine 1 MG/10 ML Abboject SYRINGE ONE (10:37)
[2022-08-02] MEDS: Amiodarone 200 MG TAB PO SCH ×3 (12:19→20:32)
[2022-08-02] MEDS: Potassium Chloride 20 MEQ TAB PO SCH (12:33)
[2022-08-02] MEDS: Pantoprazole 40 MG VIAL IVP SCH ×2 (12:35→20:32)
[2022-08-02] MEDS: Dextrose 5 % And 0.9 % NaCl 1,000 ML IV SCH ×2 (13:08→20:33)
[2022-08-02] MEDS: Atorvastatin Calcium 40 MG TAB PO SCH (20:32)
[2022-08-03 04:37] LABS: Magnesium 1.9 mg/dL (1.6-2.6)
[2022-08-03] MEDS: Dextrose 5 % And 0.9 % NaCl 1,000 ML IV SCH ×2 (05:11→15:46)
[2022-08-03] MEDS: Cefepime 2 GM in Sodium Chloride 0.9% 100 ML IVPB SCH ×2 (05:11→17:55)
[2022-08-03] MEDS ORDERED: Magnesium 2 GM/50 ML(in water) 2 GM in Premix Bag 1 BAG IVPB SCH (08:00)
[2022-08-03] MEDS: Pantoprazole 40 MG VIAL IVP SCH ×2 (09:29→20:27)
[2022-08-03] MEDS: Amiodarone 200 MG TAB PO SCH ×3 (09:29→20:26)
[2022-08-03] MEDS: Potassium Chloride 20 MEQ TAB PO SCH (09:29)
[2022-08-03 09:48] LABS: Hemoglobin 8.1 g/dL (14.0-18.0); Mean Corpuscular HGB CONC 34.1 g/dL (32.0-36.0); Mean Corpuscular Hemoglobin 30.8 pg (27.0-31.0); Mean Corpuscular Volume 90.2 fl (78.0-98.0); Mean Platelet Volume 6.2 fL (7.4-10.4); Platelet Count 462 10x3/uL (130-400); RBC Distribution Width 13.1 % (11.5-14.5); Red Blood Cell (RBC) Count 2.64 mill/uL (4.70-6.10); White Blood Cell (WBC) Count 20.8 10x3/uL (4.8-10.8)
[2022-08-03 10:01] LABS: Anion Gap 11 mmol/L (10-20); BUN (Urea Nitrogen) 8 mg/dL (8.4-25.7); Calc. Creatinine Clearance 93 mL/min (70-130); Calcium 7.9 mg/dL (7.8-10.44); Carbon Dioxide 21 mmol/L (23-31); Chloride 104 mmol/L (98-107); Estimated GFR 98; Glucose 133 mg/dL (80-115); Sodium 132 mmol/L (136-145)
[2022-08-03 10:37] LABS: Eosinophils 2 % (0-10); Large Platelets SLIGHT; Lymphocytes 7 % (21-51); MDiff Complete? YES; Monocytes 5 % (0-10); Neutrophil 86 % (42-75); Nucleated RBC 0 % (0); Platelet Morphology Comment Appears Increased; Polychromasia MODERATE = 3-4 cells (100X) (0-2/hpf)
[2022-08-03] MEDS ORDERED: Zolpidem Tartrate 5 MG TAB PO PRN (16:15)
[2022-08-03] MEDS: Atorvastatin Calcium 40 MG TAB PO SCH (20:26)
[2022-08-04 04:32] VITALS: TEMP 98.1
[2022-08-04] MEDS: Cefepime 2 GM in Sodium Chloride 0.9% 100 ML IVPB SCH (05:39)
[2022-08-04 08:31] LABS: #Eosinphils 0.4 thou/uL (0.0-0.7); #Lymphocytes 2.2 thou/uL (1.20-3.40); #Monocytes 1.7 thou/uL (0.11-0.59); #Neutrophils 17.4 thou/uL (1.40-6.50); %Basophils 0.2 % (0.0-1.0); %Eosinophils 1.7 % (0.0-10.0); %Lymphocytes 9.9 % (21.0-51.0); %Monocytes 7.8 % (0.0-10.0); %Neutrophils 80.4 % (42.0-75.0); Mean Corpuscular HGB CONC 32.8 g/dL (32.0-36.0); Mean Corpuscular Hemoglobin 30.2 pg (27.0-31.0); Mean Corpuscular Volume 92.1 fl (78.0-98.0); Mean Platelet Volume 6.1 fL (7.4-10.4); Platelet Count 579 10x3/uL (130-400); RBC Distribution Width 13.5 % (11.5-14.5); Red Blood Cell (RBC) Count 2.66 mill/uL (4.70-6.10); White Blood Cell (WBC) Count 21.6 10x3/uL (4.8-10.8)
[2022-08-04 08:42] LABS: Anion Gap 11 mmol/L (10-20); BUN (Urea Nitrogen) 8 mg/dL (8.4-25.7); Calc. Creatinine Clearance 85 mL/min (70-130); Calcium 8.1 mg/dL (7.8-10.44); Carbon Dioxide 21 mmol/L (23-31); Chloride 104 mmol/L (98-107); Estimated GFR 96; Glucose 111 mg/dL (80-115); Potassium 3.9 mmol/L (3.5-5.1); Sodium 132 mmol/L (136-145)
[2022-08-04] MEDS ORDERED: FLU VACC QS2022-23(65YR UP)/PF 240 MCG/0.7 ML SYRINGE IM ONE (09:00)
[2022-08-04] MEDS: Amiodarone 200 MG TAB PO SCH (09:33)
[2022-08-04] MEDS: Potassium Chloride 20 MEQ TAB PO SCH (09:33)
[2022-08-04] MEDS: Pantoprazole 40 MG VIAL IVP SCH (09:34)
[2022-08-04 10:40] VITALS: BP 108/51
== END 2022-08-04 11:58 | disposition home or self-care (01) | DRG 378 ==
LOC: ERS 01:55 → IMCU/EMU 03:22
PROVIDERS: ADMIT Student in an Organized Health Care Education/Training Program; ATTEND Internal Medicine
PROC: 30233N1 Transfusion of Nonautologous Red Blood Cells into Peripheral Vein, Percutaneous Approach (ICD-10-PCS; 2022-08-01)
PROC: 0W3P8ZZ Control Bleeding in Gastrointestinal Tract, Via Natural or Artificial Opening Endoscopic (ICD-10-PCS; principal; 2022-08-02)
PROC: 3E0G8GC Introduction of Other Therapeutic Substance into Upper GI, Via Natural or Artificial Opening Endoscopic (ICD-10-PCS; 2022-08-02)
DX: K26.4 Chronic or unspecified duodenal ulcer with hemorrhage (principal); D62 Acute posthemorrhagic anemia; E87.1 Hypo-osmolality and hyponatremia; I24.8 Other forms of acute ischemic heart disease; E78.5 Hyperlipidemia, unspecified; I25.10 Atherosclerotic heart disease of native coronary artery without angina pectoris; D72.829 Elevated white blood cell count, unspecified; E83.51 Hypocalcemia; E78.00 Pure hypercholesterolemia, unspecified; R73.03 Prediabetes; K44.9 Diaphragmatic hernia without obstruction or gangrene; Z79.82 Long term (current) use of aspirin; Z79.899 Other long term (current) drug therapy; Z90.49 Acquired absence of other specified parts of digestive tract; Z95.1 Presence of aortocoronary bypass graft; Z98.890 Other specified postprocedural states; Z87.891 Personal history of nicotine dependence
CPT/HCPCS: 36415; 36416; 36430; 71045; 74177; 80048; 80053; 82274; 82553; 83605; 83735; 84145; 84484; 85025; 85610; 85730; 86850; 86900; 86901; 87040; 93005; 96374; 96375; C9113; J0171; J0610; J0611; J0692; J2250; J2704; J3475; J3490; J7042; P9016; Q9967

== ENCOUNTER 2022-08-07 19:56 | Inpatient (IN) | payer MEDICARE ==
[2022-08-07 20:31] LABS: #Eosinphils 0.1 thou/uL (0.0-0.7); #Lymphocytes 1.6 thou/uL (1.20-3.40); #Monocytes 1.5 thou/uL (0.11-0.59); %Basophils 0.1 % (0.0-1.0); %Eosinophils 0.7 % (0.0-10.0); %Lymphocytes 9.2 % (21.0-51.0); %Monocytes 8.9 % (0.0-10.0); %Neutrophils 81.1 % (42.0-75.0); Hemoglobin 9.4 g/dL (14.0-18.0); Mean Corpuscular HGB CONC 34.1 g/dL (32.0-36.0); Mean Corpuscular Hemoglobin 30.9 pg (27.0-31.0); Mean Corpuscular Volume 90.5 fl (78.0-98.0); Platelet Count 794 10x3/uL (130-400); RBC Distribution Width 13.2 % (11.5-14.5); Red Blood Cell (RBC) Count 3.05 mill/uL (4.70-6.10); White Blood Cell (WBC) Count 17.3 10x3/uL (4.8-10.8)
[2022-08-07 20:39] LABS: Prothrombin Time 13.4 sec (12.0-14.7)
[2022-08-07 20:40] LABS: PTT 28.6 sec (22.9-36.1)
[2022-08-07 20:51] LABS: ALT (SGPT) 19 U/L (8-55); AST (SGOT) 12 U/L (5-34); Albumin 3.9 g/dL (3.4-4.8); Alkaline Phosphatase 165 U/L (40-110); Anion Gap 13 mmol/L (10-20); BUN (Urea Nitrogen) 12 mg/dL (8.4-25.7); Bilirubin, Total 0.4 mg/dL (0.2-1.2); CK (CPK) 15 U/L (30-200); Calc. Creatinine Clearance 0 mL/min (70-130); Calcium 8.7 mg/dL (7.8-10.44); Carbon Dioxide 22 mmol/L (23-31); Chloride 102 mmol/L (98-107); Estimated GFR 81; Globulin 2.7 g/dL (2.4-3.5); Glucose 124 mg/dL (80-115); Lipase 52 U/L (8-78); Potassium 4.1 mmol/L (3.5-5.1); Protein, Total 6.6 g/dL (5.8-8.1); Sodium 133 mmol/L (136-145)
[2022-08-07 21:21] LABS: CKMB 0.6 ng/mL (0-6.6)
[2022-08-07] MEDS ORDERED: Ondansetron ODT 4 MG TAB PO PRN (21:58)
[2022-08-07] MEDS ORDERED: Acetaminophen 325 MG TAB PO PRN (21:58)
[2022-08-07 22:06] LABS: Acetaminophen Less than 10.0 mcg/mL (10.0-30.0); Alcohol Less than 10 mg/dL (Less than 10); Salicylate Less than 8.0 mg/dL (15.0-30.0)
[2022-08-07 22:45] LABS: Amphetamine Not Detected (NotDetected); Barbiturates Screen Not Detected (NotDetected); Benzodiazepine Screen Not Detected (NotDetected); Cocaine Metabolite Screen Not Detected (NotDetected); Methadone Not Detected (NotDetected); Methamphetamine Not Detected (NotDetected); Opiate Screen Not Detected (NotDetected); Oxycodone Screen Not Detected (NotDetected); Phencyclidine (PCP) Not Detected (NotDetected); THC/Cannabinoid Screen Detected (NotDetected); Tricyclic Screen Not Detected (NotDetected)
[2022-08-07 22:48] LABS: Bilirubin Negative (Negative); Blood, Urine Negative (Negative); Clarity Clear (Clear); Glucose, Urine (Dipstick) Normal (Negative); Ketone, Urine Negative (Negative); Leukocyte Negative Leu/uL (Negative); Nitrite Negative (Negative); Protein, Urine (Dipstick) Negative (Neg-Trace); Specific Gravity, Urine 1.008 (1.002-1.036); Urobilinogen Normal mg/dL (Less than 2); pH, Urine 5.5 (5.0-9.0)
[2022-08-08] LABS: Critical Call Chem Troponin I RESULT DECREASING; Troponin I 0.226 ng/mL (< 0.028)
[2022-08-08 03:30] LABS: Troponin I 0.236 ng/mL (< 0.028)
[2022-08-08 04:20] LABS: Anion Gap 13 mmol/L (10-20); BUN (Urea Nitrogen) 10 mg/dL (8.4-25.7); Calc. Creatinine Clearance 0 mL/min (70-130); Calcium 8.1 mg/dL (7.8-10.44); Carbon Dioxide 19 mmol/L (23-31); Chloride 107 mmol/L (98-107); Estimated GFR 99; Glucose 103 mg/dL (80-115); Sodium 135 mmol/L (136-145)
[2022-08-08 04:28] LABS: #Eosinphils 0.2 thou/uL (0.0-0.7); #Lymphocytes 1.5 thou/uL (1.20-3.40); #Monocytes 1.4 thou/uL (0.11-0.59); %Basophils 0.2 % (0.0-1.0); %Eosinophils 1.4 % (0.0-10.0); %Lymphocytes 10.4 % (21.0-51.0); %Monocytes 9.7 % (0.0-10.0); %Neutrophils 78.4 % (42.0-75.0); Hemoglobin 8.2 g/dL (14.0-18.0); Mean Corpuscular HGB CONC 32.9 g/dL (32.0-36.0); Mean Corpuscular Volume 91.2 fl (78.0-98.0); Platelet Count 682 10x3/uL (130-400); RBC Distribution Width 13.3 % (11.5-14.5); Red Blood Cell (RBC) Count 2.73 mill/uL (4.70-6.10)
[2022-08-08 06:47] VITALS: BMI 20.8
[2022-08-08] MEDS ORDERED: Potassium Chloride 20 MEQ TAB PO SCH (08:00)
[2022-08-08] MEDS ORDERED: Metoprolol Tartrate 25 MG TAB PO SCH (09:00)
[2022-08-08] MEDS ORDERED: Amiodarone 200 MG TAB PO SCH (09:00)
[2022-08-08] MEDS ORDERED: traMADol HCl 50 MG TAB PO PRN (15:21)
[2022-08-08] MEDS ORDERED: Zolpidem Tartrate 5 MG TAB PO PRN (15:22)
[2022-08-08] MEDS ORDERED: Protamine Sulfate 50 MG/5 ML VIAL ONE (17:03)
[2022-08-08] MEDS ORDERED: Heparin 5,000 UNITS/ML VIAL ONE (17:03)
[2022-08-08] MEDS ORDERED: Bupivacaine HCl 0.5%/Epinephrine 1:200,000/PF 30 ml Vial ONE (17:03)
[2022-08-08] MEDS ORDERED: Heparin 5,000 UNITS/ML VIAL SC SCH (17:15)
[2022-08-08] MEDS ORDERED: Heparin 10,000 UNITS/ 10 ML VIAL ONE (17:24)
[2022-08-08] MEDS ORDERED: Heparin 5,000 UNITS/ML VIAL SLOW IVP SCH (17:30)
[2022-08-08] MEDS ORDERED: fentaNYL PF 100 MCG/2 ML SYRINGE ONE (17:40)
[2022-08-08] MEDS ORDERED: Phenylephrine 10 MG/ML VIAL ONE ×2 (17:52→19:21)
[2022-08-08] MEDS ORDERED: Rocuronium Bromide 10 MG/ML (10ML VIAL) ONE (17:52)
[2022-08-08] MEDS ORDERED: PROPOFOL 200 MG/20 ML VIAL ONE (17:52)
[2022-08-08] MEDS ORDERED: Ondansetron PF 4 MG/2 ML Vial ONE (17:52)
[2022-08-08] MEDS ORDERED: Lidocaine 1% PF 5 ML VIAL ONE (17:52)
[2022-08-08] MEDS ORDERED: ePHEDrine Sulfate 50 MG/10 ML VIAL ONE ×2 (17:52→19:25)
[2022-08-08] MEDS ORDERED: SUGAMMADEX SODIUM 200 MG/2 ML VIAL ONE (19:01)
[2022-08-08] MEDS ORDERED: Phenylephrine 40 MG in Sodium Chloride 0.9% 250 ML 250 ML IVPB PRN (19:12)
[2022-08-08] MEDS ORDERED: hydrALAZINE 20 MG/ML VIAL SLOW IVP PRN (19:12)
[2022-08-08] MEDS ORDERED: Ondansetron PF 4 MG/2 ML Vial IVP PRN (19:12)
[2022-08-08] MEDS ORDERED: Nitroglycerin 50 MG/250 ML BOT 250 ML IVPB PRN (19:12)
[2022-08-08] MEDS ORDERED: Ipratropium/Albuterol 3 ML NEB NEB PRN (19:12)
[2022-08-08] MEDS ORDERED: fentaNYL 50 mcg/mL 1 mL Vial SLOW IVP PRN (19:18)
[2022-08-08] MEDS ORDERED: PHENYLEPHRINE-NS 100 MCG/ML 10 ML SYRINGE ONE (19:21)
[2022-08-08] MEDS ORDERED: Norepinephrine 4 MG/4 ML VIAL ONE (19:24)
[2022-08-08] MEDS ORDERED: NOREPINEPHRINE 8 MG/250 ML-D5W 250 ML ONE (19:28)
[2022-08-08] MEDS ORDERED: Nitroglycerin 50 MG/250 ML BOT 250 ML IVPB SCH (19:30)
[2022-08-08] MEDS ORDERED: Phenylephrine 40 MG in Sodium Chloride 0.9% 250 ML 250 ML IVPB SCH (19:30)
[2022-08-08] MEDS ORDERED: NOREPINEPHRINE 8 MG/250 ML-D5W 250 ML IVPB SCH (20:00)
[2022-08-08] MEDS: Amiodarone 200 MG TAB PO SCH (21:45)
[2022-08-08] MEDS: Atorvastatin Calcium 40 MG TAB PO SCH (21:46)
[2022-08-08] MEDS: CEFAZOLIN 2 GM in Sodium Chloride 0.9% 100 ML IVPB SCH (21:47)
[2022-08-08] MEDS: Metoprolol Tartrate 25 MG TAB PO SCH (21:52)
[2022-08-08] MEDS: Sodium Chloride 0.9% 1,000 ML IV SCH (21:55)
[2022-08-08] MEDS: Ipratropium/Albuterol 3 ML NEB NEB SCH (23:58)
[2022-08-09] MEDS: CEFAZOLIN 2 GM in Sodium Chloride 0.9% 100 ML IVPB SCH ×2 (05:00→13:20)
[2022-08-09] MEDS: Sodium Chloride 0.9% 1,000 ML IV SCH ×2 (08:00→18:11)
[2022-08-09] MEDS: Ipratropium/Albuterol 3 ML NEB NEB SCH ×4 (08:33→23:53)
[2022-08-09] MEDS ORDERED: Aspirin 81 mg Enteric Coated Tablet PO SCH (09:00)
[2022-08-09] MEDS ORDERED: Aspirin Chewable 81 MG TAB PO SCH (09:45)
[2022-08-09] MEDS: Metoprolol Tartrate 25 MG TAB PO SCH ×2 (10:00→21:17)
[2022-08-09] MEDS: Amiodarone 200 MG TAB PO SCH ×2 (10:00→21:15)
[2022-08-09] MEDS: Atorvastatin Calcium 40 MG TAB PO SCH (21:16)
[2022-08-10] MEDS: Sodium Chloride 0.9% 1,000 ML IV SCH ×2 (01:15→11:15)
[2022-08-10] MEDS: Ipratropium/Albuterol 3 ML NEB NEB SCH ×4 (07:08→23:44)
[2022-08-10] MEDS: Acetaminophen 325 MG TAB PO PRN ×2 (09:48→16:10)
[2022-08-10] MEDS: Metoprolol Tartrate 25 MG TAB PO SCH ×2 (09:49→20:11)
[2022-08-10] MEDS: Amiodarone 200 MG TAB PO SCH ×2 (09:49→20:11)
[2022-08-10] MEDS: Aspirin Chewable 81 MG TAB PO SCH (09:49)
[2022-08-10] MEDS ORDERED: Piperacillin/Tazobactam 3.375 GM in Sodium Chloride 0.9% 100 ML IVPB SCH (17:00)
[2022-08-10 19:48] LABS: Bacteria/HPF None Seen HPF (None Seen); Bilirubin Negative (Negative); Blood, Urine Negative (Negative); CAUTI Indications for Culture Fever or rigors; Clarity Turbid (Clear); Glucose, Urine (Dipstick) Normal (Negative); Ketone, Urine Negative (Negative); Leukocyte Negative Leu/uL (Negative); Nitrite Negative (Negative); Protein, Urine (Dipstick) Negative (Neg-Trace); RBC/HPF 0-3 HPF (0-3); Specific Gravity, Urine 1.017 (1.002-1.036); Squamous Epithelial 0-3 HPF (0-3); Urobilinogen Normal mg/dL (Less than 2); WBC/HPF 0-3 HPF (0-3)
[2022-08-10 19:49] LABS: Urine Culture Reflex No No
[2022-08-10] MEDS: Piperacillin/Tazobactam 3.375 GM in Sodium Chloride 0.9% 100 ML IVPB SCH (20:11)
[2022-08-10] MEDS: Atorvastatin Calcium 40 MG TAB PO SCH (20:11)
[2022-08-11] MEDS: Acetaminophen 325 MG TAB PO PRN ×3 (04:06→23:48)
[2022-08-11] MEDS: Piperacillin/Tazobactam 3.375 GM in Sodium Chloride 0.9% 100 ML IVPB SCH ×3 (05:18→21:27)
[2022-08-11 06:10] LABS: #Lymphocytes 0.6 thou/uL (1.20-3.40); #Monocytes 1.2 thou/uL (0.11-0.59); #Neutrophils 6.5 thou/uL (1.40-6.50); %Basophils 0.4 % (0.0-1.0); %Eosinophils 0.1 % (0.0-10.0); %Lymphocytes 7.6 % (21.0-51.0); %Monocytes 14.4 % (0.0-10.0); %Neutrophils 77.5 % (42.0-75.0); Hemoglobin 7.4 g/dL (14.0-18.0); Mean Corpuscular Hemoglobin 28.6 pg (27.0-31.0); Mean Corpuscular Volume 89.2 fl (78.0-98.0); Platelet Count 507 10x3/uL (130-400); RBC Distribution Width 13.8 % (11.5-14.5); Red Blood Cell (RBC) Count 2.59 mill/uL (4.70-6.10); White Blood Cell (WBC) Count 8.4 10x3/uL (4.8-10.8)
[2022-08-11 06:32] LABS: Anion Gap 11 mmol/L (10-20); BUN (Urea Nitrogen) 10 mg/dL (8.4-25.7); Calc. Creatinine Clearance 80 mL/min (70-130); Calcium 7.9 mg/dL (7.8-10.44); Carbon Dioxide 20 mmol/L (23-31); Chloride 103 mmol/L (98-107); Estimated GFR 95; Glucose 104 mg/dL (80-115); Potassium 3.8 mmol/L (3.5-5.1); Sodium 130 mmol/L (136-145)
[2022-08-11] MEDS: Ipratropium/Albuterol 3 ML NEB NEB SCH ×4 (08:15→22:29)
[2022-08-11] MEDS: Aspirin Chewable 81 MG TAB PO SCH (08:17)
[2022-08-11] MEDS: Amiodarone 200 MG TAB PO SCH ×2 (08:19→21:28)
[2022-08-11] MEDS: Senokot S 8.6-50 MG TAB PO PRN ×2 (08:19→21:27)
[2022-08-11] MEDS: Metoprolol Tartrate 25 MG TAB PO SCH ×2 (09:39→23:48)
[2022-08-11] MEDS ORDERED: Iopamidol-370 76% 500 ML MDV (1 ML CHARGE) ONE (14:07)
[2022-08-11] MEDS: Atorvastatin Calcium 40 MG TAB PO SCH (21:28)
[2022-08-12] MEDS: Piperacillin/Tazobactam 3.375 GM in Sodium Chloride 0.9% 100 ML IVPB SCH ×3 (04:05→20:44)
[2022-08-12] MEDS: Ipratropium/Albuterol 3 ML NEB NEB SCH ×3 (07:32→22:02)
[2022-08-12] MEDS: Metoprolol Tartrate 25 MG TAB PO SCH (08:21)
[2022-08-12] MEDS: Amiodarone 200 MG TAB PO SCH ×2 (08:21→20:45)
[2022-08-12] MEDS: Aspirin Chewable 81 MG TAB PO SCH (08:21)
[2022-08-12] MEDS: Acetaminophen 325 MG TAB PO PRN ×2 (08:21→20:45)
[2022-08-12] MEDS ORDERED: Sodium Chloride 0.9% 1,000 ML IV SCH (10:45)
[2022-08-12] MEDS ORDERED: Vancomycin 1 GM in Premix Bag 1 BAG IVPB SCH (11:00)
[2022-08-12] MEDS ORDERED: VANCOMYCIN IVPB PRN (11:11)
[2022-08-12 11:30] LABS: #Lymphocytes 0.7 thou/uL (1.20-3.40); #Monocytes 1.1 thou/uL (0.11-0.59); #Neutrophils 7.4 thou/uL (1.40-6.50); %Eosinophils 0.2 % (0.0-10.0); %Lymphocytes 7.9 % (21.0-51.0); %Monocytes 11.8 % (0.0-10.0); %Neutrophils 80.1 % (42.0-75.0); Mean Corpuscular HGB CONC 32.4 g/dL (32.0-36.0); Mean Corpuscular Hemoglobin 28.6 pg (27.0-31.0); Mean Corpuscular Volume 88.1 fl (78.0-98.0); Mean Platelet Volume 6.2 fL (7.4-10.4); Platelet Count 396 10x3/uL (130-400); RBC Distribution Width 14.5 % (11.5-14.5); Red Blood Cell (RBC) Count 2.81 mill/uL (4.70-6.10); White Blood Cell (WBC) Count 9.3 10x3/uL (4.8-10.8)
[2022-08-12 11:51] LABS: Anion Gap 13 mmol/L (10-20); BUN (Urea Nitrogen) 13 mg/dL (8.4-25.7); CRP (Inflammatory) 8.63 mg/dL (= or < 0.5); Calc. Creatinine Clearance 87 mL/min (70-130); Calcium 8.2 mg/dL (7.8-10.44); Carbon Dioxide 20 mmol/L (23-31); Chloride 101 mmol/L (98-107); Estimated GFR 97; Glucose 102 mg/dL (80-115); Potassium 4.1 mmol/L (3.5-5.1); Sodium 130 mmol/L (136-145)
[2022-08-12] MEDS: Atorvastatin Calcium 40 MG TAB PO SCH (20:45)
[2022-08-13] MEDS: Ipratropium/Albuterol 3 ML NEB NEB SCH ×2 (01:34→07:21)
[2022-08-13 05:29] LABS: #Eosinphils 0.1 thou/uL (0.0-0.7); #Monocytes 0.8 thou/uL (0.11-0.59); #Neutrophils 6.4 thou/uL (1.40-6.50); %Basophils 0.2 % (0.0-1.0); %Eosinophils 0.8 % (0.0-10.0); %Lymphocytes 11.9 % (21.0-51.0); %Monocytes 9.7 % (0.0-10.0); %Neutrophils 77.4 % (42.0-75.0); Hemoglobin 8.2 g/dL (14.0-18.0); Mean Corpuscular HGB CONC 31.4 g/dL (32.0-36.0); Mean Corpuscular Hemoglobin 27.7 pg (27.0-31.0); Mean Corpuscular Volume 88.3 fl (78.0-98.0); Mean Platelet Volume 6.4 fL (7.4-10.4); Platelet Count 509 10x3/uL (130-400); RBC Distribution Width 14.7 % (11.5-14.5); Red Blood Cell (RBC) Count 2.96 mill/uL (4.70-6.10); White Blood Cell (WBC) Count 8.2 10x3/uL (4.8-10.8)
[2022-08-13] MEDS: Piperacillin/Tazobactam 3.375 GM in Sodium Chloride 0.9% 100 ML IVPB SCH ×3 (05:34→20:44)
[2022-08-13 05:46] LABS: Anion Gap 13 mmol/L (10-20); BUN (Urea Nitrogen) 12 mg/dL (8.4-25.7); Calc. Creatinine Clearance 91 mL/min (70-130); Carbon Dioxide 20 mmol/L (23-31); Chloride 105 mmol/L (98-107); Estimated GFR 99; Glucose 100 mg/dL (80-115); Potassium 3.9 mmol/L (3.5-5.1); Sodium 134 mmol/L (136-145)
[2022-08-13] MEDS: Amiodarone 200 MG TAB PO SCH ×2 (09:19→20:44)
[2022-08-13] MEDS: Aspirin Chewable 81 MG TAB PO SCH (09:19)
[2022-08-13] MEDS: Ipratropium 200 Puff Oral Inhaler INH SCH ×2 (14:39→19:37)
[2022-08-13] MEDS: Albuterol 200 PUFF (6.7GM INHALER) INH SCH ×2 (14:39→19:37)
[2022-08-13] MEDS: Atorvastatin Calcium 40 MG TAB PO SCH (20:44)
[2022-08-13] MEDS: Amoxicillin/Potassium Clav 875 MG TAB PO SCH (22:07)
[2022-08-14] MEDS: Albuterol 200 PUFF (6.7GM INHALER) INH SCH ×3 (02:36→14:08)
[2022-08-14] MEDS: Ipratropium 200 Puff Oral Inhaler INH SCH ×3 (02:37→14:08)
[2022-08-14] MEDS: Amoxicillin/Potassium Clav 875 MG TAB PO SCH (09:33)
[2022-08-14] MEDS: Amiodarone 200 MG TAB PO SCH (09:33)
[2022-08-14] MEDS: Aspirin Chewable 81 MG TAB PO SCH (09:33)
[2022-08-14 11:46] VITALS: BP 120/71; TEMP 97.8
[2022-08-14 15:35] LABS: Hemoglobin A1c 5.1 % (4.0-6.0)
[2022-08-14 15:46] LABS: Cardiac Risk 4.4 (Less than 4.5)
== END 2022-08-14 16:14 | DRG 37 ==
LOC: ERS 19:56 → 2NO 08-08 01:25 → OBSVTOIN 08-08 14:54 → CCU 08-08 20:22 → NEURO 08-10 17:08
PROVIDERS: ADMIT Student in an Organized Health Care Education/Training Program; ATTEND Family Medicine
PROC: 03CL0ZZ Extirpation of Matter from Left Internal Carotid Artery, Open Approach (ICD-10-PCS; principal; 2022-08-08)
PROC: 03UL0KZ Supplement Left Internal Carotid Artery with Nonautologous Tissue Substitute, Open Approach (ICD-10-PCS; 2022-08-08)
PROC: 3E033XZ Introduction of Vasopressor into Peripheral Vein, Percutaneous Approach (ICD-10-PCS; 2022-08-08)
DX: I63.032 Cerebral infarction due to thrombosis of left carotid artery (principal); G93.6 Cerebral edema; J69.0 Pneumonitis due to inhalation of food and vomit; I77.71 Dissection of carotid artery; G81.94 Hemiplegia, unspecified affecting left nondominant side; E87.1 Hypo-osmolality and hyponatremia; I25.110 Atherosclerotic heart disease of native coronary artery with unstable angina pectoris; I48.0 Paroxysmal atrial fibrillation; R53.81 Other malaise; E78.00 Pure hypercholesterolemia, unspecified; R73.03 Prediabetes; I95.9 Hypotension, unspecified; R29.701 NIHSS score 1; G51.0 Bell's palsy; R74.01 Elevation of levels of liver transaminase levels; I10 Essential (primary) hypertension; Z95.1 Presence of aortocoronary bypass graft; Z79.899 Other long term (current) drug therapy; Z79.82 Long term (current) use of aspirin; Z90.49 Acquired absence of other specified parts of digestive tract; Z87.891 Personal history of nicotine dependence; R47.1 Dysarthria and anarthria
CPT/HCPCS: 36415; 70450; 70551; 71045; 71260; 80048; 80053; 80061; 80306; 80307; 81001; 81003; 82550; 82553; 83036; 83605; 83690; 84145; 84443; 84484; 85025; 85610; 85652; 85730; 86140; 86850; 86900; 86901; 87040; 87081; 87086; 88305; 93005; 93306; 93880; 94640; 96360; 96361; C1768; G0378; J1644; J2370; J2405; J2543; J2704; J2720; J3370-JW; J3490; J7050; J7620; Q9967